=== PATIENT | female | born 1965 | race Caucasian/White ===

== ENCOUNTER 2022-12-07 14:35 | Outpatient (CLI) | payer BC, SELFPAY ==
--- NOTE | 2022-12-07 14:40 | CRLHL7_ITS ---
For Patients: As a result of the Century Cures Act, medical imaging exams and procedure reports are released immediately into your electronic medical record. You may view this report before your referring provider. If you have questions, please contact your health care provider. BILATERAL SCREENING MAMMOGRAM WITH COMPUTER-AIDED DETECTION AND TOMOSYNTHESIS TECHNIQUE: CC and MLO views were obtained. These mammographic images have been obtained using full-field digital technique. These mammographic images were interpreted with the benefit of computer-aided detection. Breast Tomosynthesis was used in this interpretation. COMPARISON FILM: 11/04/21, 10/31/20, 10/25/19 FINDINGS: There are scattered areas of fibroglandular density. IMPRESSION: There is no radiographic evidence for malignancy. ASSESSMENT: BI-RADS Category 1: Negative RECOMMENDATION: Routine screening mammogram in 1 year. A lay language report of this examination will be provided to the patient. Gerard Rodriges M.D. Diagnostic/Nuclear Medicine Radiologist [email or web address] Transcribed: 8:33 a.m. PT/Dictated by: Gerard Rodriges MD @ 12/08/2022 8:21:00 AM (Electronically Signed)
== END 2022-12-07 14:36 | disposition home or self-care (01) ==
LOC: MAMMO 14:36
PROVIDERS: Visit Provider Family Medicine
DX: Z12.31 Encounter for screening mammogram for malignant neoplasm of breast (principal)
CPT/HCPCS: 77063; 77067

== ENCOUNTER 2023-04-26 15:28 | Outpatient (CLI) | payer BC, SELFPAY ==
--- NOTE | 2023-04-26 15:30 | MR_ITS ---
[facility] [address] [facility] [address] Phone:?[phone] Fax:?[phone] Referring Physician Information: Demarcus Jane M.D. [address] [facility] [address] Phone:?[phone] Fax:?[phone] Patient:Jet lA D.O.B:?1965 Sex:?Female Phone:?[phone] [facility] MRN:?[id number] Exam Date:?04/26/2023 EXAM: MRI EXAMINATION OF THE LEFT SHOULDER CLINICAL INFORMATION: Left shoulder pain. No history of surgery to this area. Question possible tear. TECHNICAL INFORMATION: Coronal STIR as well as axial, sagittal and coronal PD and T2-weighted images were acquired. No prior studies for comparison. INTERPRETATION: Bones: There is no Hill-Sachs impaction deformity. There are mild osseous cystic changes alongside the AC joint. There is no other bone marrow edema pattern. Rotator Cuff: Series 8 images 5 and 6 as well as series 4 images 10 and 11 demonstrate a 1.1 cm AP by 1 cm mediolateral segment of fraying/poorly defined partial tearing involving bursal sided fibers of the mid to anterior supraspinatus tendon insertion. This appears to maximally involve one half of the tendon fiber thickness. The infraspinatus tendon is intact without tear or significant tendinopathy. The teres minor tendon is intact. There is a mild to moderate appearance of subscapularis tendinopathy. Localized fatty infiltration/fatty atrophy involves the superior one third of the distal muscle belly. Coracoacromial arch: There is no discrete subacromial osseous spur. The bony acromiohumeral interval is measuring 5 to 6 mm. There is no thickening identified of the coracoacromial ligament. Acromioclavicular joint: There is a marked appearance of AC joint DJD. Undersurface spurring and resultant moderate underlying supraspinatus deformity. Mild thickening and edema signal involves the subacromial/subdeltoid bursa areas. Biceps tendon: The long head biceps tendon is intact and nondisplaced from the bicipital groove. No evidence for a tendon tear or appreciable changes of tendinopathy. Glenohumeral joint and labrum: No significant glenohumeral joint effusion. No discrete loose body within the joint. Osteochondral surfaces appear relatively preserved. There is degeneration with blunting and irregularity involving the mid to posterior aspect of the superior labrum. Blunting and degeneration involves the superior posterior labrum. There is ossification within the posterior inferior labrum. No discrete paralabral cyst is identified. CONCLUSION: 1. There is a small to moderate-sized segment of fraying/poorly defined partial tearing involving bursal sided fibers of the mid to anterior supraspinatus tendon insertion. This appears to maximally involve one half of the tendon fiber thickness. 2. Mild to moderate subscapularis tendinopathy. Localized mild to moderate fatty atrophy/fatty infiltration involves the superior one third of the distal muscle belly. 3. 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 4. Mild to moderate narrowing of the acromiohumeral interval. Mild subacromial/subdeltoid bursitis. 5. No appreciable glenohumeral chondromalacia. Blunting and degeneration involves the superior and superior posterior labrum. There is ossification within the posterior inferior labrum which may be related to a chronic injury. KES Electronically signed on 04/27/2023 8:33:00 AM by Deric Fuller M.D.
== END 2023-04-26 15:29 | disposition home or self-care (01) ==
LOC: MRI 15:29
PROVIDERS: PCP Family Medicine; Visit Provider Family Medicine
DX: M25.512 Pain in left shoulder (principal); M75.102 Unspecified rotator cuff tear or rupture of left shoulder, not specified as traumatic; M19.012 Primary osteoarthritis, left shoulder; M75.52 Bursitis of left shoulder; M94.212 Chondromalacia, left shoulder
CPT/HCPCS: 73221

== ENCOUNTER 2023-12-14 12:31 | Outpatient (CLI) | payer OTHER, SELFPAY | END 2023-12-14 12:32 | disposition home or self-care (01) | PROVIDERS: PCP Family Medicine; Visit Provider Family Medicine | DX: I10 Essential (primary) hypertension (principal); M25.50 Pain in unspecified joint | CPT/HCPCS: 80048; 80061; 84460; 85025; 86039; 86140; 86431 ==

== ENCOUNTER 2024-01-18 07:56 | Outpatient (CLI) | payer OTHER, SELFPAY ==
--- NOTE | 2024-01-18 08:00 | CRLHL7_ITS ---
For Patients: As a result of the Century Cures Act, medical imaging exams and procedure reports are released immediately into your electronic medical record. You may view this report before your referring provider. If you have questions, please contact your health care provider. INDICATION: Lung cancer screening. History of smoking. High risk patient. TECHNIQUE: Low-dose lung cancer screening non-contrast CT chest. Dose reduction techniques were used. COMPARISON: None. FINDINGS: NODULES: 11 x 10 millimeter left upper lobe noncalcified nodule (series 4 image 34). LUNGS AND PLEURA: Minimal emphysema. MEDIASTINUM: Normal. CORONARY ARTERY CALCIFICATION: None. LIMITED UPPER ABDOMEN: Right kidney not visualized, possibly malpositioned surgically absent. MUSCULOSKELETAL: Mild thoracic spondylosis. IMPRESSION: 1. ACR Lung-RADS category 4A, suspicious. 11 x 10 millimeter left upper lobe solid nodule at baseline. 2. Recommend further assessment with PET-CT. Please note that all CT scans at this facility use dose modulation, iterative reconstruction, and/or weight-based dosing when appropriate to reduce radiation dose to as low as reasonably achievable. Dictated by Trenton Manzano MD @ 01/19/2024 6:22:18 AM (Electronically Signed)
== END 2024-01-18 07:57 | disposition home or self-care (01) ==
LOC: CT 07:56
PROVIDERS: PCP Family Medicine; Visit Provider Family Medicine
DX: Z12.2 Encounter for screening for malignant neoplasm of respiratory organs (principal); R91.8 Other nonspecific abnormal finding of lung field; Z72.0 Tobacco use
CPT/HCPCS: 71271

== ENCOUNTER 2024-02-03 15:17 | Outpatient (CLI) | payer OTHER, SELFPAY ==
--- NOTE | 2024-02-03 15:30 | PE_ITS ---
[facility] [address] [facility] [address] Phone:?[phone] Fax:?[phone] Referring Physician Information: Demarcus Jane M.D. [address] [facility] [address] Phone:?[phone] Fax:?[phone] Patient:?Sol Al D.O.B:?1965 Sex:?Female Phone:?[phone] [facility] MRN:?[id number] Exam Date:?02/03/2024 EXAM:?PET/CT EYES TO THIGHS, CANCER INITIAL STAGING CLINICAL INFORMATION: Evaluate lung nodule TECHNICAL INFORMATION: Helical acquisition of data was obtained from the orbits to the upper thighs with reconstruction of 3.75 mm thick images at 3.[address] data was used for attenuation correction. PET scanning was performed through the same anatomic range 60 minutes following administration of 11.85 mCi of 18-FDG delivered intravenously. The patient's glucose at the time of the injection was 85 mg/dL. PET, CT and PET/CT fusion images are interpreted using a computer viewing workstation. PET, CT and PET/CT fusion images were archived and saved in the patient's permanent medical record. COMPARISON: CT chest 01/18/2024 INTERPRETATION: Head and Neck: A few subcentimeter (measuring up to 6 mm in short axis) left cervical chain lymph nodes (levels IB and IIA) with mild radiotracer avidity (fused images 40, 43) with an SUV max of 7.29. There is physiologic uptake in the intracranial soft tissues. Chest: Mediastinal blood pool activity with an SUV max of 2.69. Redemonstrated 1.1 cm nodule in the left upper lobe (series 202 image 83) which does not demonstrate significant FDG avidity (SUV max of 1.33). No other lung nodules are detected. No lymphadenopathy detected. No pleural effusion or pneumothorax. A 1.5 cm hypoattenuating nodule in the left thyroid lobe without associated radiotracer avidity. Abdomen and Pelvis: Background liver parenchymal uptake with a mean SUV of 2.5. There are no abnormal hypermetabolic foci within the abdomen or pelvis. There is physiologic excretion of radiotracer in the urine and bowel. Hepatic steatosis. The right kidney is absent. A few sigmoid diverticula. Normal appendix. Aortoiliac atherosclerosis. A fat-containing left periumbilical hernia. Skeleton, Musculature, and Integument: No abnormal hypermetabolic foci within the skeleton. No kenroy osteoblastic or osteolytic disease. CONCLUSION: * A stable 1.1 cm nodule in the left upper lobe without associated radiotracer avidity. Recommend follow-up with CT chest in 6 months. * A few subcentimeter radiotracer avid left cervical chain lymph nodes. These are nonspecific and although they are small in size, the degree of uptake is suspicious. Cannot exclude a primary neck neoplasm. Recommend CT of the neck with IV contrast for further evaluation. * A 1.5 cm left thyroid lobe nodule without associated radiotracer avidity. Consider thyroid ultrasound for further evaluation. Electronically signed on 02/07/2024 9:59:00 AM by Fareed Valdez D.O
== END 2024-02-03 15:18 | disposition home or self-care (01) ==
LOC: RAD 15:18
PROVIDERS: PCP Family Medicine; Visit Provider Family Medicine
DX: R91.8 Other nonspecific abnormal finding of lung field (principal); E04.1 Nontoxic single thyroid nodule
CPT/HCPCS: 78815; A9552

== ENCOUNTER 2024-02-08 14:56 | Outpatient (CLI) | payer OTHER, SELFPAY ==
[2024-02-08] MEDS: PERFLUTREN LIPID MICROSPHERES 2 ML VIAL IV (15:25)
[2024-02-08 15:55] VITALS: BP 132/86; PULSE 82
--- NOTE | 2024-02-08 16:00 | CRLHL7_ITS ---
For Patients: As a result of the Century Cures Act, medical imaging exams and procedure reports are released immediately into your electronic medical record. You may view this report before your referring provider. If you have questions, please contact your health care provider. INDICATION: Localized enlarged lymph nodes TECHNIQUE: CT of the neck with 94 ml iodinated contrast agent. Coronal and sagittal reconstructions are included. COMPARISON: PET/CT 02/03/2020 FINDINGS: There is no mass or other lesion within the soft tissues of the suprahyoid or infrahyoid neck. No lymphadenopathy. A few lymph nodes that demonstrated hypermetabolism on the previous study are not enlarged by size criteria and have a normal morphology. The oral cavity, nasopharyngeal, oropharyngeal and hypopharyngeal mucosal spaces are normal. No periapical dental disease. The supraglottic, glottic and infraglottic larynx are normal. The airway including the trachea is normal and is patent. The parotid glands, submandibular and sublingual glands are normal in appearance. There is a 1.7 cm left thyroid nodule. The vascular structures opacify normally with contrast material. Scattered mild cervical spondylosis without significant neural foraminal stenosis. No suspicious lytic or blastic osseous lesions. Visualized paranasal sinuses and mastoid air cells are clear. Visualized orbital and intracranial contents are normal. Supraclavicular regions, mediastinum and soft tissues of the imaged chest wall are normal. Stable 1.2 cm soft tissue lesion in the left upper lobe. IMPRESSION: 1. No suspicious enhancement or neck mass. 2. No evidence of acute inflammation. 3. No cervical lymphadenopathy. 4. Stable 1.7 cm left thyroid nodule. 5. Stable 1.2 cm soft tissue lesion in the left upper lobe. Please note that all CT scans at this facility use dose modulation, iterative reconstruction, and/or weight-based dosing when appropriate to reduce radiation dose to as low as reasonably achievable. Dictated by Demarcus House MD @ 02/09/2024 1:34:29 PM (Electronically Signed)
[2024-02-08 16:27] LABS: Creatinine* 0.6 mg/dL (0.5-1.5); Est. Creatinine Clearance* 86.61; Estimated Glomerular Filt Rate 105 ml/min
--- NOTE | 2024-02-08 16:44 | P.STN_ITS ---
Stress Test Note Date Date of test: 02/08/24 Providers Primary care provider: Demarcus Jane Stress test physician: Tonio Salinas Stress Test Note Stress test ordered: Stress Echo Indication for test: Chest pain Results discussion: Patient is a very nice 58-year-old female who presents here for the above diagnosis after discussion the risks benefits and side effects she would like to proceed pretest EKG shows normal sinus rhythm with no acute ST wave changes, ventricular rate 67 blood pressure is 128/83. Standard Thomas protocol is fol lowed over a time course of 9 minutes 3 seconds, metabolic equivalent obtained is 10.5 maximum heart rate was 143, maximum blood pressure was 190/100. Test is terminated because of fulfillment of protocol. She had no anginal equivalent symptoms. Review of the EKG tracing showed no ST wave changes suggestive of ischemia, there were no dysrhythmias she recovered normally in the recovery. Impression: Negative electrographic portion of stress echo Follow up suggested: Patient did well, Cardiology will read the echo portion, clinical correlation with this will be needed, conditioning was felt to be good. Patient will be discharged from this testing facility when she fulfills criteria for discharge. There were no complication.
== END 2024-02-08 14:57 | disposition home or self-care (01) ==
LOC: STRESS 14:57
PROVIDERS: PCP Family Medicine; Visit Provider Family Medicine
DX: R07.9 Chest pain, unspecified (principal); R59.0 Localized enlarged lymph nodes
CPT/HCPCS: 36415; 70491; 82565; 93016; 93325; 93351; Q9957; Q9967

== ENCOUNTER 2024-02-28 15:14 | Outpatient (CLI) | payer OTHER, SELFPAY ==
--- NOTE | 2024-02-28 15:20 | CRLHL7_ITS ---
For Patients: As a result of the Century Cures Act, medical imaging exams and procedure reports are released immediately into your electronic medical record. You may view this report before your referring provider. If you have questions, please contact your health care provider. BILATERAL DIGITAL SCREENING MAMMOGRAM WITH COMPUTER-AIDED DETECTION AND TOMOSYNTHESIS CLINICAL HISTORY: Routine screening exam. COMPARISON: 12/07/2022, 11/04/2021, 10/31/2020. TECHNIQUE: Digital mammogram in CC and MLO projections including computer-aided detection (CAD). Tomosynthesis was used in this interpretation. BREAST COMPOSITION: There are areas of scattered fibroglandular density. FINDINGS: RIGHT Breast: Microcalcifications are present in the upper outer quadrant 8 cm from the nipple. LEFT Breast: No suspicious findings. IMPRESSION: RIGHT breast calcifications. RECOMMENDATIONS: Spot compression magnification views of the calcifications in the RIGHT breast in CC and ML projections. BI-RADS Category 0: Incomplete: Need additional Imaging Evaluation and/or Prior Mammograms for Comparison [facility] will contact the patient for follow-up. A lay language report of this examination will be provided to the patient. Dictated by Demarcus Reese MD @ 02/29/2024 8:44:14 AM jj/Dictated by: Demarcus Reese MD @ 02/29/2024 8:44:00 AM (Electronically Signed)
== END 2024-02-28 15:15 | disposition home or self-care (01) ==
LOC: MAMMO 15:16
PROVIDERS: PCP Family Medicine; Visit Provider Family Medicine
DX: Z12.31 Encounter for screening mammogram for malignant neoplasm of breast (principal); R92.0 Mammographic microcalcification found on diagnostic imaging of breast
CPT/HCPCS: 77063; 77067

== ENCOUNTER 2024-03-07 10:48 | Outpatient (CLI) | payer OTHER, SELFPAY ==
--- NOTE | 2024-03-07 10:45 | CRLHL7_ITS ---
For Patients: As a result of the Cures Act, medical imaging exams and procedure reports are released immediately into your electronic medical record. You may view this report before your referring provider. If you have questions, please contact your health care provider. DIGITAL DIAGNOSTIC RIGHT MAMMOGRAM USING COMPUTER-AIDED DETECTION CLINICAL HISTORY: RIGHT breast calcification. COMPARISON: 11/04/2021. TECHNIQUE: Digital RIGHT mammogram in three projections with computer-aided detection. BREAST COMPOSITION: There are areas of scattered fibroglandular density. FINDINGS: Additional mammogram images demonstrate loose grouping of non-layering microcalcifications within the upper outer quadrant RIGHT breast 7 cm from the nipple. IMPRESSION: Indeterminate microcalcifications. RECOMMENDATIONS: Stereotactic biopsy. Results and recommendations discussed with the patient. BI-RADS Category 4: Suspicious A lay language report of this examination will be provided to the patient. Dictated by Demarcus Reese MD @ 03/07/2024 12:15:32 PM janj/Dictated by: Demarcus Reese MD @ 03/07/2024 12:15:00 PM (Electronically Signed)
== END 2024-03-07 10:49 | disposition home or self-care (01) ==
LOC: MAMMO 10:49
PROVIDERS: PCP Family Medicine; Visit Provider Family Medicine
DX: R92.0 Mammographic microcalcification found on diagnostic imaging of breast (principal); R92.8 Other abnormal and inconclusive findings on diagnostic imaging of breast
CPT/HCPCS: 77065; G0279

== ENCOUNTER 2024-07-10 15:52 | Outpatient (CLI) | payer OTHER, SELFPAY ==
--- NOTE | 2024-07-10 16:00 | CRLHL7_ITS ---
For Patients: As a result of the Century Cures Act, medical imaging exams and procedure reports are released immediately into your electronic medical record. You may view this report before your referring provider. If you have questions, please contact your health care provider. Indication: ABNORMAL FINDINGS ON PET SCAN 02/03/24 Technique: Noncontrast CT chest Please note that all CT scans at this facility use dose modulation, iterative reconstruction, and/or weight-based dosing when appropriate to reduce radiation dose to as low as reasonably achievable. Comparison: CT PET 02/03/2024 Findings: Stable 12 millimeter nodule within the left upper lobe. No additional nodule. No fracture or suspicious osseous lesion. Mild paraseptal emphysema noted anteriorly. No pleural effusion or pulmonary edema. No pneumothorax. No adenopathy. Similar low-density left thyroid lobe nodule. Simple left renal cyst. Severely atrophied right [place] kidney. Impression: Stable 12 millimeter noncalcified left upper lobe pulmonary nodule. Please note that all CT scans at this facility use dose modulation, iterative reconstruction, and/or weight-based dosing when appropriate to reduce radiation dose to as low as reasonably achievable. Dictated by Demarcus Reese MD @ 07/11/2024 12:35:27 PM (Electronically Signed)
== END 2024-07-10 15:53 | disposition home or self-care (01) ==
LOC: CT 15:52
PROVIDERS: PCP Family Medicine; Visit Provider Family Medicine
DX: R91.8 Other nonspecific abnormal finding of lung field (principal); Z72.0 Tobacco use
CPT/HCPCS: 71250

== ENCOUNTER 2024-08-29 15:27 | Outpatient (CLI) | payer OTHER, SELFPAY ==
--- NOTE | 2024-08-29 15:30 | CRLHL7_ITS ---
For Patients: As a result of the 21st Century Cures Act, medical imaging exams and procedure reports are released immediately into your electronic medical record. You may view this report before your referring provider. If you have questions, please contact your health care provider. CLINICAL INDICATION: Right shoulder pain. COMPARISON IMAGING STUDIES: None available at time of interpretation. TECHNICAL: Non-contrast MRI of the right shoulder. Axial, sagittal oblique and coronal oblique T1, PD, PD FS, T2 and T2 FS images. 1.5 Alycia MR scanner. FINDINGS: GLENOHUMERAL JOINT: Effusion: Small amount of joint fluid. Mild synovitis. Humeral Head Articular Cartilage: Mild humeral head articular cartilage wear (grade 1/2). Glenoid Articular Cartilage: Mild glenoid cartilage wear (grade 1/2). Alignment: Maintained. Capsule: There is some edema within the rotator interval without not involving the glenohumeral joint capsule diffusely. OSSEOUS STRUCTURES: Periarticular bone marrow edema about the AC joint. There is no acute fracture. Reactive bone marrow edema is present within the lesser tuberosity. CORACOACROMIAL ARCH: Acromial Morphology: Type 2 acromial morphology. No abnormal lateral or anterior downward sloping of the acromion. No os acromiale. There is spurring of the anterior lateral acromion. Lateral acromial thickness is 7 mm. Acromiohumeral Interval: At its narrowest, the interval measures 8 mm. Mildly prominent coracoacromial ligament. Coracohumeral Interval: At its narrowest, the coracohumeral interval measures 9 mm. Coracoid index is 10 mm. ACROMIOCLAVICULAR JOINT REGION: Severe/advanced AC joint degenerative arthrosis with periarticular bone marrow edema and AC joint capsular edema. Coracoclavicular ligament intact. BURSAE: Mild subacromial-subdeltoid bursal edema. Mild subcoracoid bursal edema. ROTATOR CUFF TENDONS AND MUSCLES AND DELTOID: Supraspinatus and Infraspinatus: Moderate supraspinatus tendinosis with undersurface irregularity of the distal tendon suggesting sequelae of [id number]-qs-espyprst grade partial-thickness tendon tearing or fraying. There is some low signal associated with the distal tendon on coronal oblique PD fat-sat image number 12 series 7 which may relate to calcific tendinitis. Radiographic correlation is suggested. There is no full-thickness tear or muscle atrophy. Mild distal infraspinatus tendinosis. The distal infraspinatus tendon tear or muscle atrophy. Teres Minor: Distal tendon intact. No muscle atrophy. Subscapularis: Distal subscapularis tendon is severely abnormal over a 1.5 cm craniocaudad extent with high-grade partial to full-thickness tearing of the tendon from the lesser tuberosity. No subscapularis muscle atrophy. Deltoid: No muscle atrophy or edema. BICEPS TENDON, LONG HEAD: There is tendinosis of the long head of the biceps tendon likely with tendon fraying. Large amount of fluid within the biceps tendon sheath. Slight medial subluxation of the tendon at the upper margin of the bicipital groove without dislocation. GLENOID LABRUM: Degenerative fraying of the superior labrum. OTHER FINDINGS: There is no abnormality within the suprascapular or spinoglenoid notches nor within the quadrilateral space. No axillary adenopathy or mass. IMPRESSION: 1. Severely abnormal distal subscapularis tendon with high-grade partial to full-thickness tearing of the tendon from the lesser tuberosity superiorly. Reactive bone marrow edema within the lesser tuberosity. 2. Moderate supraspinatus tendinosis with undersurface irregularity of the distal tendon suggesting sequelae of khf-qe-aqkihkrg grade partial-thickness tendon tearing or fraying. Low signal associated with the distal tendon may relate to calcific tendinitis. Radiographic correlation is suggested. 3. Advanced AC joint degenerative arthrosis with periarticular bone marrow edema and AC joint capsular edema. 4. Tendinosis of the long of the biceps tendon with fraying. Subtle/slight medial subluxation of the tendon at the upper-most bicipital groove, without dislocation. 5. Mild glenohumeral joint degenerative changes. 6. Mild subacromial-subdeltoid and subcoracoid bursal edema. Dictated by Nikhil Cao MD @ 08/30/2024 8:18:14 AM (Electronically Signed)
== END 2024-08-29 15:28 | disposition home or self-care (01) ==
LOC: MRI 15:29
PROVIDERS: PCP Family Medicine; Visit Provider Family Medicine
DX: M25.511 Pain in right shoulder (principal); M75.101 Unspecified rotator cuff tear or rupture of right shoulder, not specified as traumatic; M75.51 Bursitis of right shoulder; M19.011 Primary osteoarthritis, right shoulder
CPT/HCPCS: 73221

== ENCOUNTER 2024-11-06 15:52 | Outpatient (CLI) | payer OTHER, SELFPAY | END 2024-11-06 15:53 | disposition home or self-care (01) | LOC: FBOREF 15:53 | PROVIDERS: PCP Family Medicine; Visit Provider Family Medicine | DX: I10 Essential (primary) hypertension (principal) | CPT/HCPCS: 80048; 85025 ==

== ENCOUNTER 2025-03-19 15:16 | Outpatient (CLI) | payer OTHER, SELFPAY ==
--- NOTE | 2025-03-19 15:20 | CRLHL7_ITS ---
For Patients: As a result of the Century Cures Act, medical imaging exams and procedure reports are released immediately into your electronic medical record. You may view this report before your referring provider. If you have questions, please contact your health care provider. INDICATION: BILATERAL SCREENING MAMMOGRAM, ASYMPTOMATIC 59 Y/O FEMALE COMPARISON: 02/28/2024, 12/07/2022, 11/04/2021 TECHNIQUE: Digital mammogram in CC and MLO projections including computer-aided detection (CAD) and tomosynthesis. BREAST COMPOSITION: There are scattered areas of fibroglandular density. FINDINGS: No suspicious findings. ASSESSMENT: BI-RADS 1 Negative RECOMMENDATION: Annual screening mammogram. A lay language report of this examination will be provided to the patient. Dictated by: Demarcus Reese MD @ 03/20/2025 12:54:57 (Electronically Signed)
== END 2025-03-19 15:17 | disposition home or self-care (01) ==
LOC: MAMMO 15:16
PROVIDERS: PCP Family Medicine; Visit Provider Family Medicine
DX: Z12.31 Encounter for screening mammogram for malignant neoplasm of breast (principal)
CPT/HCPCS: 77063; 77067

== ENCOUNTER 2025-06-03 14:39 | Emergency (ER) | payer OTHER, SELFPAY ==
--- OUTSIDE RECORDS SUMMARY | 2025-05-20 23:42 | XMS_ITS | Encounter Summary ---
Author Organization [facility] Address [address] [place] [address] Care Team Providers Care White Washer Name Role Phone Unavailable Primary Care Provider Unavailabl e Reason for Visit * Reason Comments Finger Laceration Encounter Details Date Type Department Care Team ([facility] Contact Info) Description 05/20/2025 11:42 PM CDT - 05/21/2025 12:19 AM CDT Emergency [facility] Emergency [address] [place] [phone] Tony Govea MD [address] [place] [address] Discharge Disposition: Home or Self Care Social History Tobacco Use Types Packs/Day Years Used Date Smoking Tobacco: Never Assessed Comments Unknown Sex and Gender Information Value Date Recorded Sex Assigned at Not on file Legal Sex Female 1:10 PM PDT Gender Identity Not on file Sexual Orientation Not on file documented as of this encounter Last Filed Vital Signs Vital Sign Reading Time Taken Comments Blood Pressure 126/79 05/20/2025 11:46 PM CDT Pulse 69 05/20/2025 11:46 PM CDT Temperature 36.4 C (97.5 F) 05/20/2025 11:46 PM CDT Respiratory Rate 16 05/20/2025 11:46 PM CDT Oxygen Saturation 96% 05/20/2025 11:46 PM CDT Inhaled Oxygen Concentration - - Weight 81.6 kg (180 lb) 05/20/2025 11:46 PM CDT Height 162.6 cm (5' 4) 05/20/2025 11:46 PM CDT Body Mass Index 30.9 05/20/2025 11:46 PM CDT documented in this encounter Discharge Instructions * Discharge Instructions* Tony Govea MD - 05/21/2025 12:02 AM CDT Keep area mostly dry. Avoid soaking your hand. Watch for signs or symptoms of infection. Sutures can be removed in 1 week documented in this encounter ED Notes * Tony Govea MD - 05/21/2025 12:02 AM CDT HPI Chief Complaint Patient presents with Finger Laceration 59-year-old female presents with a laceration on the back of her left thumb. She had a metal piece of hard work fall off the wall and cut her hand. She is due for a tetanus shot Current Facility-Administered Medications Medication Dose Route Frequency Provider Last Rate Last Admin diphth,pertus(acell),tetanus (BoostRIX) 2.5-8-5 Lf-mcg-Lf/0.5mL vaccine 0.5 mL 0.5 mL intramuscularOnce Tony Govea MD lidocaine (Xylocaine) 10 mg/mL (1 %) injection - ADS Override Pull No current outpatient medications on file. Patient History There are no active problems to display for this patient. No past medical history on file. No past surgical history on file. No family history on file. Social History Tobacco Use Smoking status: Not on file Smokeless tobacco: Not on file Substance Use Topics Alcohol use: Not on file Drug use: Not on file Review of Systems Review of Systems Physical Exam Vitals: 05/20/25 2346 BP: 126/79 Pulse: 69 Resp: 16 Temp: 97.5 ??F (36.4 ??C) TempSrc: Temporal SpO2: 96% Weight: 180 lb (81.6 kg) Height: 5' 4 (1.626 m) Physical Exam Skin: Findings: Laceration present. Comments: 1.5 cm laceration on the back of her left thumb LABS: No results found for this or any previous visit (from the past 24 hours). IMAGING: No results found. Procedures Medical Decision Making 59-year-old presents with a laceration of her left thumb. Differential includes nerve injury vascular injury tendon injury. Exam showed no loss of function or sensation. She did have a laceration however that required sutures. After anesthesia was obtained with 1% lidocaine directly into the lesionI sewed it shot with 5-0 sutures #4 in a simple interrupted fashion. Wound was closed tightly without any problems. Patient can have sutures removed in 1 week. Band- Aid was placed Problems Addressed: Laceration of left thumb without foreign body without damage to nail, initial encounter: complicated acute illness or injury Amount and/or Complexity of Data Reviewed External Data Reviewed: notes. Risk Prescription drug management. Final diagnoses: [S61.012A] Laceration of left thumb without foreign body without damage to nail, initial encounter * Elza Khan RN - 05/20/2025 11:48 PM CDT ED Nursing Triage Note Patient presents to triage Private Car. Significant symptoms per patient include left thumb laceration when a aisha star ornament fell off the wall onto her thumb, stating it bled a lot. She washed it out under tap water at home. Happened about 2100 tonight. Currently it is not bleeding and is overthe first joint of the left thumb. Pre hospital prior living situation: Home ED Arrival Note Chief Complaint: Chief Complaint Patient presents with Finger Laceration History of Trauma/Loss of Consciousness: No Initial Set of Vital Signs: BP 126/79 Pulse 69 Temp 97.5 ??F (36.4 ??C) Resp 16 Ht 5' 4 (1.626 m) Wt 180 lb (81.6 kg) SpO2 96% BMI 30.90 kg/m?? BSA 1.92 m?? Elza Khan RN .................... 05/20/2025 11:48 PM CDT documented in this encounter Miscellaneous Notes * Leticia DESOUZA - Gerard Steel RN - 05/21/2025 12:14 AM CDT Images from the original note were not included. [id number] Laceration, All Closures A laceration is a cut through the skin. This will usually need stitches or humza if it's deep. Minor cuts may be treated with a surgical tape closure or skin glue. Home care ? If your doctor prescribes an antibiotic, follow all instructions for taking this medicine. This is to help prevent infection. Take the medicine every day until it's gone, or you are told to stop. You should not have any left over. ? Follow instructions for taking any pain medicines. The doctor may prescribe medicines for pain. If none was prescribed, you can use topa-pba-qfzpoka pain medicines. Talk with your doctor before using these medicines if you have chronic liver or kidney disease, ever had a stomach ulcer or digestive bleeding, or are on a blood thinner medicine. ? Follow the doctor?s instructions on how to care for the cut. ? Always wash your hands before and after cleaning the wound or changing the dressing. ? Keep the wound clean and dry. Don't get the wound wet until you are told it's okay to do so. If the area gets wet, gently pat it dry with a clean cloth. Replace the wet bandage with a dry one. ? If a bandage was applied and it becomes wet or dirty, replace it. Otherwise, leave it in place for the first 24 hours. ? Caring for stitches or humza: Once you no longer need to keep them dry, clean the wound daily. First remove the bandage. Then wash the area gently with soap and clean running water, or as directed by the doctor. Use a wet cotton swab to loosen and remove any blood or crust that forms. After cleaning, apply a thin layer of antibiotic ointment if advised. Then put on a new bandage unless you are told not to. ? Caring for skin glue: Don?t apply liquid, ointment, or cream on the wound while the glue is in place. It will loosen the glue. Don't do activities that cause heavy sweating. Protect the wound from sunlight. Don't scratch, rub, or pick at the adhesive film. Don't place tape directly over the film.The glue should peel off on its own in 5 to 10 days. If it does not fall off after 5 to 10 days, use an antibiotic ointment or petroleum jelly to loosen it, then gently peel it off. ? Caring for surgical tape: Keep the area dry. If it gets wet, blot it dry with a clean towel. Surgical tape often falls off in 7 to 10 days. If it has not fallen off after 10 days, you can take it off yourself. Put mineral oil or petroleum jelly on a cotton ball and gently rub the tape until it's removed. ? Once you can get the wound wet, you may shower as normal. Don't soak the wound in water (no tub baths or swimming). ? Check the wound daily for the signs of infection listed below. Even with correct treatment, a wound infection may sometimes occur. Scalp wounds Follow your doctor's specific instructions on showering. During the first 2 days, you may carefullyrinse your hair in the shower to remove blood, glass, or dirt particles. After 2 days, you may shower and shampoo your hair normally. Don't soak your scalp in the tub or go swimming until the stitches or humza have been removed. Talk with your doctor before applying any antibiotic ointment to thewound. Avoid scratching or picking on the wound scab. It will delay healing. Avoid using hair products like dyes, hair spray, or extensions while a scalp wound heals. Mouth wounds Eat soft foods to reduce pain. Avoid hot and spicy foods. If the cut is inside your mouth, clean itby rinsing after each meal and at bedtime with a mixture of equal parts water and hydrogen peroxide. (Don't swallow it.) Or you can use a cotton swab to apply hydrogen peroxide onto the cut. You may also be prescribed a chlorhexidine solution to rinse with. [place] and floss your teeth gently. Mouth wounds can be painful when eating. You may use an tabq-zid-mazxeww local numbing solution for pain relief. If this isn't available, you may use any numbing solution intended for teething babies. You may apply this directly to the sores with a cotton-tip swabor with your clean finger. Always wash your hands before and after cleaning the wound. Follow-up care Follow up with your doctor as advised. Ask your doctor how long stitches should be left in place. Be sure to return for stitch removal as directed. If dissolving stitches were used in the mouth, these should fall out or dissolve on their own. If tape closures were used, remove them yourself when your doctor advises if they haven't fallen off on their own. If skin glue was used, the film will wearoff by itself. Try to keep healing wounds out of direct sunlight for the first couple of months to try to lessen scarring. When to get medical advice Contact your doctor right away if you have: ? Signs of infection, including increasing pain in the wound, increasing wound redness or swelling,or pus or bad odor coming from the wound. ? A fever of 100.4??F (38.??C) or higher, or as advised by your doctor. ? Chills. ? Stitches or humza that come apart or fall out, or surgical tape that falls off before 7 days and the wound appears to be reopening. ? Wound edges that reopen. ? Wound color changes. ? Numbness around the wound after any numbing medicine should have worn off. ? Decreased movement or stiffness around the injured area. Call 911 Call 911 if you can't control the wound bleeding with direct pressure. Last Reviewed Date: 2024 00:00:00 ?? [id number] [employer]. All rights reserved. This information is not intended as a substitute for professional medical care. Always follow your healthcare professional's instructions. documented in this encounter Plan of Treatment Not on file documented as of this encounter Visit Diagnoses Diagnosis Laceration of left thumb without foreign body without damage to nail, initial encounter- Primary documented in this encounter Administered Medications Inactive Administered Medications - up to 3 most recent administrations Medication Order MAR Action Action Date Dose Rate Site lidocaine (Xylocaine) 10 mg/mL (1 %) injection - ADS Override Pull Starting on 05/20/25 at 2343, For 1 dose, Gerard Setel: cabinet override [place] 05/20/2025 11:45 PM CDT documented in this encounter Active and Recently Administered Medications Times are shown in CDT. No Frequency Medication Order 05/19/2025 05/20/2025 05/21/2025 lidocaine (Xylocaine) 10 mg/mL (1 %) injection - ADS Override Pull (COMPLETED) Starting on 05/20/25 at 2343, For 1 dose, Gerard Steel: cabinet override 2342 ([place] - Provider: Gerard Steel RN) documented in this encounter
[2025-06-03] VITALS (17 sets, daily range): BP systolic 117–141; BP diastolic 76–91; PULSE 64–79; RESP 13–21; TEMP 36.5; O2SAT 93–96; BMI 31.9
--- OUTSIDE RECORDS SUMMARY | 2025-06-03 14:41 | XMS_ITS ---
Author Name Interface, [id number] lity Address [address], [place] [address] [facility] Address [address] [address] Allergies and Adverse Reactions Medication/Group Name Reaction Severity Date No known allergies Plan Date Type Value 07/15/2021 APPOINTMENT RC - 605 NO LABS - 605 NO LABS 07/14/2021 APPOINTMENT RC - 605 RECHECK - 605 RECHECK 07/04/2021 APPOINTMENT PSTOP - 605 POST OP - 605 POST OP 07/01/2021 APPOINTMENT PSTOP - - 06/17/2021 APPOINTMENT EXLAP - - 06/17/2021 APPOINTMENT EXLAP - - 05/19/2021 APPOINTMENT MANDREL MAKER - MANDREL MAKER 605 OVAR EVE HUNT MD 05/19/2021 APPOINTMENT MANDREL MAKER - MANDREL MAKER 605 OVAR EVE HUNT MD 05/19/2021 LAB_ORDER ThinPrep PAP Scr eening, Imaged 05/19/2021 LAB_ORDER CEA panel 05/19/2021 LAB_ORDER CA 125 panel 05/19/2021 LAB_ORDER CA 19-9 panel Reason for Visit RC - 605 NO LABS - 605 NO LABS Encounters Date Name 05/19/2021 Cancer cervix screen ing status (finding) 05/19/2021 Fallopian tube findi ng (finding) 05/19/2021 Pelvic mass 05/19/2021 Postoperative wound infection (disorder) 05/19/2021 Tobacco use Immunizations Date Name Route Dose Instructions Refusal Reason Stat us Covid-19 vaccine (Pfizer) Completed Flu vaccine - Adult Not given other reason Not Administered Diagnostic Results Date Type Test Units Lower Limit Upper Limit Result Flag Comments Status Ordered By Specimen Source Lab Address 05/19 TYPE 16 Negativ e FINAL Mag cheema 05/19 TYPE 18 Negativ e FINAL Mag Pittman ast 05/19 OTHER HIGH RISK TYPES Negativ e HPV types 16, 18, 31, 33, 35, 39, 45, 51, 52, 56, 58, 59, 66 and 68 DNA wereundet ectable or below the pre-set threshold .Methodol ogy: Tony Tigist 4800 HPV TestTest Performed by:[facility], [address] - [place], [place] [address]Bqni e : FINAL Mag Pittman ast 05/19 Pap smear , liqui d based SEE RESULTS BELOW CASE REPORTGyn ecologic Cytology Report Case: [id number] 2Authoriz ing Provider: Mag Miller, Collected :05/19/20 21 1503MDOrd ering Location: [facility] Received: 1 1715First Screen: Saúl Quezada reen: Trevor Stephen cimen: CLIENT RELATIONSHIP CONSULTANT ThinPrep Vial Screening , CervicalI NTERPRETA TION/RESU LTNEGATIV E FOR INTRAEPIT HELIAL LESION OR MALIGNANC Y (NIL)Elec tronicall y signed by Shantelle Stephen on 1 at 2:26 PMORGANIS M(S)Shift in mee suggestiv e of bacterial vaginosis SPECIMEN ADEQUACYS atisfacto ry for evaluatio nEndocerv ical component presentHP V REQUESTHP V and PAPLAST PAP RESULTFir st Pap/Unkno wnABN PAP OR COLP BX IN LAST 5 YRSNoMENS TRUAL STATUSAbl ationCOLP BX DONE TODAYNoAD DITIONAL INFORMATI ONInterpr eted at [facility], [facility] - [address], [place], [place] [address]UQRO MATED REVIEWSuc cessfulSp ecimen processed successfu lly by automated assistant football coach device, ThinPrep ImagingSy stem, [employer]ANCIL JUAN JOSE TESTING GYNHPV Ordered, Please see separate reportNOT EThe pap test is a screening technique , not a diagnosti c procedure . It is usedprima rily to screen for squamous cancers and precursor lesions. Published studies have shown that it is subject to both false negative and false positiver esults. The pap test should not be used as the sole means to diagnose orexclude pre-malig nant and malignant lesions.T est Performed by:[facility] - [place], [place] [address]Wclp e : FINAL Mag Pittman ast 05/19 CA 125 panel CA 125 UNITS/ ML 0.0 34.0 17.10 Test performed at [facility] on a [employer] 2000 Immunoass ay Analyzer that uses an immunoenz ymometric sandwich assay for analysis. Patient testing should not be performed using multiple methodolo gies due to analytica l variation seen between test methodolo gies. FINAL Mag cheema [facility] a [facility]cology [place] [address] [place] [phone] Phone: () - 05/19 CEA panel CEA NG/ML 0.0 3.0 3.60 High Test performed at [facility] on a [employer] Immunoass ay Analyzer that uses an immunoenz ymometric sandwich assay for analysis. Patient testing should not be performed using multiple methodolo gies due to analytica l variation seen between test methodolo gies. FINAL Mag Beebe a [place] [address] [phone] Phone: () - 05/19 CA 19-9 panel CA 19-9 U/ML 0.0 35.0 8.8 Test performed at [facility] on a [employer] Immunoass ay Analyzer thatuses an immunoenz ymometric sandwich assay for analysis. Patient testing shouldnot be performed using multiple methodolo gies due to analytica l variation seenbetwe en test methodolo gies.Grace ents must possess the ability to express the Zafar blood group antigen.P atients unable to express the Zafar blood group antigen will be unable toproduce the CA19-9 antigen even in the presence of proven malignanc y. FINAL Mag Pittman ast 06/18 [facility] other lab See baling machine tender d Medications Date Name Route Dose Frequency Instructions Start Date End Date Status Fill Status Indication 05/19 Losartan-H ydrochloro thiazide Oral 100 mg-12.5 mg active 05/19 escitalopr am Oral Tablet active 05/19 Aspirin Oral active Problems Diagnosis Status Date of Diagnosis Resolution Date Postoperative wound infection (disorder) Active Fallopian tube finding (finding) Active Cancer cervix screening status (finding) Active Pelvic mass Active Tobacco use Active Vital Signs Date Type Value 05/19/2021 Height 64.00 05/19/2021 BMI 33.81 05/19/2021 BSA 1.94 05/19/2021 Intravascular Systolic 120 05/19/2021 Intravascular Diastolic 64 05/19/2021 Body Temperature 98.70 05/19/2021 Oxygen Saturation 96.00 05/19/2021 Respiratory Rate 14.00 05/19/2021 Heart Beat 61.00 05/19/2021 Weight 197.00 05/19/2021 Pain Scale 0.00 07/04/2021 Oxygen Saturation 97.00 07/04/2021 Heart Beat 82.00 07/04/2021 BSA 1.93 07/04/2021 Body Temperature 98.60 07/04/2021 Respiratory Rate 14.00 07/04/2021 Intravascular Systolic 118 07/04/2021 Intravascular Diastolic 62 07/04/2021 BMI 33.30 07/04/2021 Height 64.00 07/04/2021 Weight 194.00 07/04/2021 Pain Scale 0.00 07/14/2021 Body Temperature 99.10 07/14/2021 BSA 1.93 07/14/2021 BMI 33.30 07/14/2021 Height 64.00 07/14/2021 Oxygen Saturation 95.00 07/14/2021 Intravascular Systolic 118 07/14/2021 Intravascular Diastolic 70 07/14/2021 Respiratory Rate 14.00 07/14/2021 Pain Scale 0.00 07/14/2021 Weight 194.00 07/14/2021 Heart Beat 79.00
--- OUTSIDE RECORDS SUMMARY | 2025-06-03 14:41 | XMS_ITS ---
Author Name Interface, [id number] lity Address [address] [place] [address] Organization [facility] Address [address] [place] [address] Allergies and Adverse Reactions Medication/Group Name Reaction Severity Date No known allergies Plan Date Type Value 07/15/2021 APPOINTMENT RC - 605 NO LABS - 605 NO LABS 07/14/2021 APPOINTMENT RC - 605 RECHECK - 605 RECHECK Reason for Visit RC - 605 NO LABS - 605 NO LABS Encounters Date Name 07/14/2021 Fallopian tube findi ng (finding) 07/14/2021 Pelvic mass 07/14/2021 Postoperative wound infection (disorder) Medications Date Name Route Dose Frequency Instructions [...] use Active Vital Signs Date Type Value 07/14/2021 Body Temperature 99.10 07/14/2021 Intravascular Systolic 118 07/14/2021 Intravascular Diastolic 70 07/14/2021 Respiratory Rate 14.00 07/14/2021 Pain Scale 0.00 07/14/2021 Oxygen Saturation 95.00 07/14/2021 Height 64.00 07/14/2021 BMI 33.30 07/14/2021 BSA 1.93 07/14/2021 Heart Beat 79.00 07/14/2021 Weight 194.00
--- OUTSIDE RECORDS SUMMARY | 2025-06-03 14:41 | XMS_ITS | CCD ---
Author Name Interface, S3Sbdudhi lity Address [address] [place] [id number] Organization [facility] Address [address] [facility] [address] [place] [address] Care Team Providers Care Jacquard Fixer Name Role Phone Mag Stark MD Allergies and Adverse Reactions Medication/Group Name Reaction Severity Date No known allergies Reason for Visit RC - 605 NO LABS - 605 NO LABS Medications Date Name Route Dose Frequency Instructions Start Date End Date Status Fill Status Indication 05/19 escitalopr am Oral Tablet active 05/19 Aspirin Oral active 05/19 Losartan-H ydrochloro thiazide Oral 100 mg-12.5 mg active Problems Diagnosis Status Date of Diagnosis Resolution Date Postoperative wound infection (disorder) Active Fallopian tube finding (finding) Active Cancer cervix screening status (finding) Active Pelvic mass Active Tobacco use Active Social History Date Name Value 05/16/2021 Sex Female
--- OUTSIDE RECORDS SUMMARY | 2025-06-03 14:41 | XMS_ITS | Encounter Summary ---
Author Organization [facility] Address [address] [place] [address] Care Team Providers Care Spool Hauler Name Role Phone Unavailable Primary Care Provider Unavailabl e Encounter Details Date Type Department Care Team (Latest Contact Info) Description 05/20/2025 Travel Social History Tobacco Use Types Packs/Day Years Used Date Smoking Tobacco: Never Assessed Comments Unknown Sex and Gender Information Value Date Recorded Sex Assigned at Not on file Legal Sex Female 1:10 PM PDT Gender Identity Not on file Sexual Orientation Not on file documented as of this encounter Plan of Treatment Not on file documented as of this encounter Visit Diagnoses Not on filedocumented in this encounter
--- OUTSIDE RECORDS SUMMARY | 2025-06-03 14:42 | XMS_ITS | Clinical Summary ---
Author Organization [facility] Address [address] [place] [address] Care Team Providers Care Load Out Worker Name Role Phone Unavailable Primary Care Provider Unavailabl e Source Comments PLEASE NOTE, if this patient is a minor, it may be UNLAWFUL to discuss sensitive information that is contained in these records (such as FAMILY PLANNING, MENTAL HEALTH or SUBSTANCE ABUSE) with the minor patient's parent or other person without the patient's specific authorization.[facility] Allergies No known active allergies Medications No known medications Encounters Date Type Department Care Team Description 05/20/2025 11:42 PM CDT - 05/21/2025 12:[address] [facility] Emergency [address] [place] [phone] Tony Govea MD Discharge Disposition: Home or Self Care 05/20/2025 Travel 04/03/2025 3:30 PM CDT - 04/03/2025 11:59 PM CDT Hospital Encounter [facility] [place] [address] [place] [phone] Andres Darling, PT Discharge Disposition: Still a Patient 04/03/2025 Travel 03/07/[address] [facility] [address] [place] [address] Andres Darling, PT from Last 3 Months Immunizations Immunization Administration Dates Next Due TDAP 05/21/2025 Social History Tobacco Use Types Packs/Day Years Used Date Smoking Tobacco: Never Assessed Comments Unknown Sex and Gender Information Value Date Recorded Sex Assigned at Not on file Legal Sex Female 1:10 PM PDT Gender Identity Not on file Sexual Orientation Not on file Last Filed Vital Signs Vital Sign Reading [...] Mass Index 30.9 05/20/2025 11:46 PM CDT Plan of Treatment Health Maintenance Due Date Last Done Comments Anxiety Screening 1967 HPV Screening 1967 Hepatitis C Screening 1967 Pap + HPV 1967 Tobacco Screening 1967 HIV Screening 1982 Imm-Hepatitis B (1 of 3 - 19 + 3-dose series) 1986 Cervical Cancer Screening [address] Colonography 2012 Colonoscopy 2012 Flexible Sigmoidoscopy 2012 Breast Cancer Screening (Mammogram) 10/12/2019 10/12/2018 Lipid Screening 10/17/2019 10/16/2016 FIT/gFOBT 01/05/2024 01/04/2023, 01/04/2023 Diabetes Screening 06/18/2024 06/18/2021, 06/03/2018 Alcohol and Drug Screen 08/16/2024 Depression Annual Screen 08/16/2024 [id number] ( season) 2025 09/12/2021, 11/23/2020, 11/02/2020 Colorectal Cancer Screening 01/04/2026 Fecal DNA 01/04/2026 01/04/2023, 12/15, 02/23/2019 Hypertension Screening (#1) 05/20/2026 Imm-DTaP/Tdap/Td (3 - Td or Tdap) 05/21/2035 05/21/2025, 07/13/2014, 12/02/2004 Imm-Zoster, Recombinant Completed 05/05/2021, 02/24 Imm-Pneumococcal 50+ Completed 12/14/2023, 05/24/20 Imm-Influenza Completed 04/30/2025, 11/2023, 06/22/2022, Additional history exists Cervical Ablation/Cold-Knife Conization Discontinued Cervical Cryotherapy Discontinued Colposcopy Discontinued Endometrial Biopsy Discontinued Excision/Leep Discontinued HPV Genotyping Discontinued Vaginal Pap Discontinued Vulvoscopy Discontinued Insurance [facility]
--- OUTSIDE RECORDS SUMMARY | 2025-06-03 14:42 | XMS_ITS | Clinical Summary ---
Author Organization [employer] [facility] Address [address] [place] [id number] Care Team Providers Care Care Transition Mgr Name Role Phone Demarcus Jane MD Primary Care Provider + Allergies Active Allergy Reactions Criticality Noted Date Comments Anand Inhibitors Cough 12/11/2014 Medications MULTIVITAMIN TAB take 1 tablet by oral route once daily with food 0 09/13/19 08 Active aspirin enteric coated 81 mg tablet Take 1 tablet by mouth once daily with a meal. 0 02/19/20 11 Active rizatriptan (MAXALT LUSTER APPLICATOR) 10 mg disintegrating tabletIndications: Nonintractable migraine, unspecified migraine type Place 1 tablet on the tongue every 2 hours if needed for Migraine. Max dose: 30mg per 24 hrs. 6 tablet 12 10/27/19 18 Active losartan-hydrochlo rothiazide, 50-12.5 mg, (HYZAAR) 50-12.5 mg tabletIndications: Hypertension Take 1 tablet by mouth once daily. 90 tablet 3 10/27/19 18 Active escitalopram oxalate (LEXAPRO) 10 mg tabletIndications: Generalized anxiety disorder Take 1 tablet by mouth once daily. 90 tablet 3 10/27/19 18 Active oxyCODONE (ROXICODONE) 5 mg immediate release tabletIndications: Pelvic mass Take 1-2 Tablets (5-10 mg) by mouth every 4 hours if needed for Pain. 15 Tablet 1 11:33 AM CDT 06/19/20 21 Active acetaminophen (TYLENOL EXTRA STRGTH) 500 mg tablet Take 2 Tablets (1,000 mg) by mouth every 6 hours if needed. Max acetaminophen dose: 4000mg in 24 hrs. 06/19/20 21 Active nicotine 21 mg/24 hr (NICODERM; HABITROL) 21 mg/24 hr patchIndications:T obacco abuse Apply 1 Patch on dry, clean, hairless skin once daily. 42 Patch 06/20/20 21 Active sennosides-docusat e (SENOKOT S) (8.6-50 mg) tabletIndications: Pelvic mass Take 1-2 Tablets by mouth 2 times daily if needed for Constipation. 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 Anxiety state, unspecified 10/15/2007 Resolved Problems Problem Noted Date Diagnosed Date Resolved Date Cough 09/17/2013 06/23/2014 Immunizations Immunization Administration Dates Next Due AMB Influenza, IIV3 (Age >=3 years)(Flu Clinic Only) 06/23/2008 Influenza, IIV3 (Age >=3 years) 06/06/20 13,05/24/2012,06/04/2010,2006 Influenza, IIV4 06/03/2018, 7,06/19/2016,2014,06/13/2014 Pneumococcal Poly,23-Valent (Pneumovax) 05/24/2012 Tdap 07/13/2014 Family History Medical History Relation Name Comments Unknown Brother RA Hyperlipidemia Father Christian Hypertension Father Christian Stroke Father Christian Cancer-breast Maternal Grandmother Anesthesia Problem No Family History Blood Disease No Family History Relation Name Status Comments Brother Father Christian Maternal Grandmother Social History Tobacco Use Types Packs/Day Years Used Date Smoking Tobacco: Every Day Cigarettes 1 15 Smokeless Tobacco: Never Tobacco Cessation:Ready to Q uit: No; Counseling Given: Yes Alcohol Use Standard Drinks/Week Comments Yes 0 (1 standard drink = 0.6 oz pur e alcohol) occassional PHQ-2 Answer Date Recorded PHQ-2 Score 0 10/15/2018 Comments No Sex and Gender Information Value Date Recorded Sex Assigned at Not on file Legal Sex Female 5:23 AM CHIEF OF STAFF Gender Identity Not on file Sexual Orientation Not on file 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 Not on file Not on file Not on file Obstetrics History Para Term AB IAB SAB Ectopic Multiple Livin g Live Births 4 2 2 0 0 0 0 0 2 2 Date Outcome GA Total Labor Labor/2nd/3rd Weight Sex Type Anes PTL Sarita A1 A5 Name Clin Term Term 1994 40w 0d M Vag Livin g Sreekanth 1996 40w 0d 3.18 kg (7 lb) F C-Sec tion Livin g 8 9 [facility] Comments:Breech Last Filed Vital Signs Vital Sign Reading Time Taken Comments Blood Pressure 132/68 06/19/2021 7:44 AM CDT Pulse 65 06/19/2021 7:44 AM CDT Temperature 36 C (96.8 F) 06/19/2021 7:44 AM CDT Respiratory Rate 16 06/19/2021 7:44 AM CDT Oxygen Saturation 93% 06/19/2021 7:44 AM CDT Inhaled Oxygen Concentration - - Weight 89.9 kg (198 lb 3.2 oz) 06/17/2021 8:33 A M CDT Height 161.3 cm (5' 3.5) 06/17/2021 8:33 AM CDT Body Mass Index 34.56 06/17/2021 8:33 AM CDT Plan of Treatment Health Maintenance Due Date Last Done Comments HIV for age 15-65 1982 Hepatitis C screening for ag e 18-79 1985 Hepatitis B series for 19+ ( 1 of 3 - 19+ 3-dose series) 1986 Colonoscopy through age 75 2012 Pneumococcal series for age 50+ (2 of 2 - PCV) 05/24/2013 05/24/2012 Zoster (shingles) series for age 50+ (1 of 2) 2017 Depression screening for age 12+ 10/26/2018 10/27/19 18, 02/27/2016 BMI (ht and wt on same day) for age 18+ 06/03/2019 06/03/2018, 10/26/2017, 12/01/2016, Additional history exists Mammogram for age 45-75 10/12/2019 10/12/19 19, 10/07/2017, 09/23/2016, Additional history exists Lipids for age 45-75 10/16/2021 10/16/2016, 12/11/2014, 10/14/2007 Pap test for age 21-65 05/19/2024 , 05/19/2021, 06/25/2015, Additional history exists Tetanus booster 07/13/2024 07/13/2014 COVID-19 vaccine series ( season) 2025 09/12/2021, 11/23/2020, 11/02/2020 Influenza Vaccine (#1) 2025 8, 06/23/2017, 06/19/2016, Additional history exists RSV vaccine for adults or (1 - 1-dose 75+ series) 2042 Goals Goal Patient Goal Type Associated Problems Recent Progress Patient-Stated? Author BLOOD PRESSURE - MAINTAINS BP less than 140/90 Blood Pressure No Demarcus Jane MD Medical Devices Implanted Type Area Counterintelligence Agent Device Identifier Shelf Expiration Date Model / Serial / Lot Adhesion Barrier 5x6in Seprafilm Absorb - [id number] Implanted:Qty: 4 on 06/17/2021 by Mag Stark MD at [facility] [employer] [facility] 11/01/2023 [id number] / / [id number] Procedures Procedure Name Priority Date/Time Associated Diagnosis Comments HPV HIGH RISK Routine 05/19/2021 3:03 PM CDT Encounter for screening for malignant neoplasm of cervix XR MAMMO BILAT SCREENING Routine 10/12/2018 8:18 AM CHIEF OF STAFF Screening breast examination LIPID PANEL W REFLEX MEASURED LDL Routine 10/16/2016 10:29 AM CHIEF OF STAFF Hypertension from Last 3 Months or Most Recently Relevant to Health Maintenance Results * HPV HIGH RISK (05/19/2021 3:03 PM CDT) TYPE 16 Negative Negative 05/22/2021 1:39 PM CDT [facility] TYPE 18 Negative Negative 05/22/2021 1:39 PM CDT [facility] OTHER HIGH RISK TYPES Negative Negative 05/22/2021 1:39 PM CDT [facility] Other (Cervical) 05/19/2021 3:03 PM CDT 05/20/2021 2:41 PM CDT Narrative [facility] - 05/22/2021 1:39 PM CDT HPV types 16, 18, 31, 33, 35, 39, 45, 51, 52, 56, 58, 59, 66 and 68 DNA were undetectable or below the pre-set threshold. Methodology: Tony Tigist 4800 HPV Test us Mag Stark MD MICROBIOLOGY Laure l Result [facility] [address] [place] [address], [place] * XR MAMMO BILAT SCREENING (10/12/2018 8:18 AM CHIEF OF STAFF) Anatomical Region Laterality Modality BREASTS, Breast Left, Breast Right Bilateral Mammography Impressions 10/12/2018 11:11 AM CHIEF OF STAFF There is no radiographic evidence for malignancy. Recommend annual mammograms. A lay language report of this examination will be provided to the patient. MAMMOGRAM ASSESSMENT: ACR 1 Negative Narrative 10/12/2018 11:11 AM CHIEF OF STAFF XR MAMMO BILAT SCREENING [[id number]] CLINICAL HISTORY: This is an asymptomatic 53 y.o. patient. INDICATION FOR EXAM: Mammogram Screening. TECHNIQUE: CC & MLO views were obtained. This digital study was evaluated with the assistance of Computer-Aided Detection. COMPARISON FILM: Yes 10/07/17 [facility] FINDINGS: Mammographically, the breast tissue has scattered fibroglandular densities. There are no dominant masses, suspicious micro calcifications or areas of architectural distortion. us Demarcus Jane MD MAMMO Final Re sult * (ABNORMAL) LIPID PANEL W REFLEX MEASURED LDL (10/16/2016 10:29 AM CHIEF OF STAFF) CHOLESTEROL,TOTAL 130 100 - 199 mg/dL 10/16/2016 12:07 PM CHIEF OF STAFF [facility] TRIGLYCERIDES 123 <150 mg/dL 10/16/2016 12:07 PM CHIEF OF STAFF [facility] HDL CHOLESTEROL 28(L) >40 mg/dL 7 12:07 PM CHIEF OF STAFF [facility] NON-HDL CHOLESTEROL 102 <145 mg/dl 10/16/2016 12:07 PM CHIEF OF STAFF [facility] CHOL/HDL RATIO 4.64(H) <4.50 10/16/2016 12:07 PM CHIEF OF STAFF [facility] LDL CHOLESTEROL 77 <=130 mg/dL 10/16/2016 12:07 PM CHIEF OF STAFF [facility] PATIENT STATUS NOT GIVEN 10/16/2016 12:07 PM CHIEF OF STAFF [facility] Blood BLOOD SPECIMEN / Unknown Venipuncture / Unknown 10/16/2016 10:29 AM CHIEF OF STAFF 10/16/2016 10:29 AM CHIEF OF STAFF Demarcus Jane MD CHEMISTRY Final Re sult Performing Organization Address City/State/[facility] [place] [address] from Last 3 Months or Most Recently Relevant to Health Maintenance Insurance Advance Directives * Full Code (Latest Code Status on File) Date Activated Date Inactivated Comments 06/17/2021 7:50 AM 06/19/2021 2:29 PM Question Answer Comments Code Status Discussion: Per Existing Order * Full Code Date Activated Date Inactivated Comments 12/07/2016 7:03 AM 12/07/2016 2:48 PM Care Teams Care Transition Mgr Relationship Specialty Start Date End Date Demarcus Jane MD [address] [place] [address] PCP - General 12/28/06
--- NOTE | 2025-06-03 15:21 | CRLHL7_ITS ---
For Patients: As a result of the Century Cures Act, medical imaging exams and procedure reports are released immediately into your electronic medical record. You may view this report before your referring provider. If you have questions, please contact your health care provider. INDICATION: Sharp pain on left side of chest TECHNIQUE: Chest radiograph 1 view COMPARISON: None FINDINGS: The sensitivity and specificity of the exam are moderately limited by the patient`s body habitus. Mediastinum: The mediastinum is normal in appearance. The heart silhouette is normal in size and morphology. Lung: There is a 1 cm nodule in the lateral left upper lung zone and corresponds to the round nodule seen on prior CT. Mild left perihilar infiltrates are present. No sign of pleural effusion seen. No pneumothorax is identified. Bone and Soft tissue: Unremarkable for age. IMPRESSIONS: 1. There is a 1 cm nodule in the lateral left upper lung zone and corresponds to the round nodule seen on prior CT. Continued imaging surveillance is recommended. 2. Mild left perihilar infiltrates are present. These findings can be seen with atelectasis and/or pneumonia. Imaging follow-up is recommended to document resolution. Dictated by Timmy Ruth MD @ 06/03/2025 4:09:42 PM Dictated by: Timmy Ruth MD @ 06/03/2025 16:09:45 (Electronically Signed)
--- NOTE | 2025-06-03 15:25 | ED.GENADULT ---
HPI - General Adult General Chief complaint: Chest Pain <Tony Guthrie MD - Last Filed: 06/03/25 15:45> Stated complaint: Sharp pain on left side of chest <Tony Guthrie MD - Last Filed: 06/03/25 15:45> Time Seen by Provider: 06/03/25 15:15 <Tony Guthrie MD - Last Filed: 06/03/25 15:45> History of Present Illness HPI narrative: Patient is a pleasant 59 year white female smoker who has had a cold and cough about a week ago that seems to be better, she had some laryngitis ache change to her voice and that continues, she noticed over the last few days some intermittent discomfort when she moves or breathes deeply in her left anterior chest left of her breast bone. She reports that touching her chest also hurts that area. She has had no leg swelling edema, no history of bleeding or clotting problems. She does have a single kidney and has an atrophic right kidney. She has had a cystadenoma of the ovary. Her medical chart was reviewed. She does still smoke. She noticed the discomfort got worse when she is walking through [employer] today. <Tony Guthrie MD - Last Filed: 06/03/25 15:45> Related Data Home medications: Home Medications ?Medication ?Instructions ?Recorded ?Confirmed multivitamin 1 tab PO QDAY 04/05/23 05/28/25 rizatriptan 10 mg disintegrating 10 mg PO DAILY 04/05/23 05/28/25 tablet valacyclovir 1 gram tablet 2,000 mg PO BID 04/05/23 05/28/25 Previous Rx's ?Medication ?Instructions ?Recorded losartan 100 1 tab PO QDAY #90 tabs 02/01/25 mg-hydrochlorothiazide 12.5 mg tablet terbinafine HCl 250 mg tablet 250 mg PO DAILY #7 tabs 04/30/25 tirzepatide (weight loss) 5 mg/0.5 5 mg (0.5 mL) subcut QWEEK 4 weeks 05/22/25 mL subcutaneous solution #2 mL escitalopram oxalate 10 mg tablet 10 mg PO QDAY #90 tabs 06/01/25 <Tony Guthrie MD - Last Filed: 06/03/25 15:45> Allergies/adverse reactions: Allergies Allergy/AdvReac Type Severity Reaction Status Date / Time JUAN LUIS Inhibitors AdvReac Mild Cough Verified 05/28/25 07:57 <Tony Guthrie MD - Last Filed: 06/03/25 15:45> Review of Systems Status of ROS: Reports: 6 or more systems reviewed and unremarkable except as noted in History and below <Tony Guthrie MD - Last Filed: 06/03/25 15:45> [facility] Medical History: Medical History Recurrent herpes labialis ?B00.1 - Herpesviral vesicular dermatitis (ICD-10) Migraine without aura (02/15/14) ?G43.009 - Migraine without aura, not intractable, without status migrainosus (ICD-10) Primary hypertension ?I10 - Essential (primary) hypertension (ICD-10) Arthritis of knee, left ?M17.12 - Unilateral primary osteoarthritis, left knee (ICD-10) Congenital absence of right kidney ?Q60.0 - Renal agenesis, unilateral (ICD-10) Anxiety and depression ?F41.9 - Anxiety disorder, unspecified (ICD-10) ?F32.A - Depression, unspecified (ICD-10) Lesion of right fallopian tube (06/2021) ?N83.9 - Noninflammatory disorder of ovary, fallopian tube and broad ligament, unspecified (ICD-10) 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) ?D27.9 - Benign neoplasm of unspecified ovary (ICD-10) Actinic keratosis ?L57.0 - Actinic keratosis (ICD-10) <Tony Guthrie MD - Last Filed: 06/03/25 15:45> Surgical History: Surgical History History of repair of right rotator cuff ?Z98.890 - Other specified postprocedural states (ICD-10) History of exploratory laparotomy (06/2021) ?Z98.890 - Other specified postprocedural states (ICD-10) History of endometrial ablation (~2017) ?Z98.890 - Other specified postprocedural states (ICD-10) History of meniscectomy of left knee ?Z98.890 - Other specified postprocedural states (ICD-10) History of reduction mammoplasty (2001) ?Z98.890 - Other specified postprocedural states (ICD-10) History of section (06/14/97) ?Z98.891 - History of uterine scar from previous surgery (ICD-10) <Tony Guthrie MD - Last Filed: 06/03/25 15:45> Family History: Family History Maternal Grandmother Breast cancer Mother High blood pressure Osteoporosis Heart disease Father Coronary artery disease Stroke High blood pressure High cholesterol Brother Alcohol dependence Lung cancer Rheumatoid arthritis Sister Heart disease <oTny Guthrie MD - Last Filed: 06/03/25 15:45> Social History: Social History Narrative: Arts Administrator, , two kids, smoker What is your current living situation?: I presently have a place to live Problems where you live: no known problems In the past 12 months, utilities in danger of being shut off: no In past 12 months, lack of transportation kept you from medical appts, meetings, work, or getting things needed for daily living: no In the past 12 mos, have been you worried that your food would run out before you had money to buy more?: never true In the past 12 mos, the food you bought just didn't last and you didn't have money to buy more?: never true Highest level of school completed/degree received: Associate degree: academic program Smoking Status: Current every day smoker Do you use any of these nicotine containing products: None How often do you have a drink containing alcohol: 2-4 times a month AUDIT-C Alcohol total score: 2 Non-prescribed substance use: denies use Are you now , , , , never or living with a partner: Social isolation score (0-1 are the most socially isolated patients): 1 How often does anyone, including family, friends and others, physically hurt you: never How often does anyone, including family, friends and others, insult or talk down to you: never How often does anyone, including family, friends and others, threaten you with harm: never How often does anyone, including family, friends and others, scream or curse at you: never Do you think of yourself as: straight/heterosexual Gender Identity: female Are you currently sexually active: Yes <Tony Guthrie MD - Last Filed: 06/03/25 15:45> Exam Narrative: Exam Narrative: Objective: Patient's vital signs look within normal limits She is alert orient x3 no distress no cyanosis Neck is supple Chest equal breath sounds patient has anterior chest wall pain with deep breathing. Abdomen benign extremities are no edema neurologic nonfocal. No swelling in her legs. Good peripheral perfusion noted. <Tony Guthrie MD - Last Filed: 06/03/25 15:45> Const: Vital Signs, click to edit/add: Vital Signs - 24 hr 06/03/25 15:01 06/03/25 15:21 06/03/25 15:53 Temperature 97.7 F Pulse Rate 70 Pulse Rate [Pulse Oximeter] 70 Respiratory Rate 18 20 Blood Pressure Blood Pressure [Le ft Upper Arm] 141/77 H Pulse Oximetry 95 95 95 Oxygen Delivery Me thod Room Air 06/03/25 15:54 06/03/25 16:00 06/03/25 16:02 Temperature Pulse Rate 64 71 69 Pulse Rate [Pulse Oximeter] Respiratory Rate 13 15 21 Blood Pressure 119/80 123/76 Blood Pressure [Le ft Upper Arm] Pulse Oximetry 95 94 96 Oxygen Delivery Me thod 06/03/25 16:15 06/03/25 16:30 06/03/25 16:35 Temperature Pulse Rate 69 73 71 Pulse Rate [Pulse Oximeter] Respiratory Rate 16 16 20 Blood Pressure Blood Pressure [Le ft Upper Arm] Pulse Oximetry 95 95 95 Oxygen Delivery Me thod 06/03/25 16:45 06/03/25 17:00 06/03/25 17:05 Temperature Pulse Rate 73 72 74 Pulse Rate [Pulse Oximeter] Respiratory Rate 15 14 15 Blood Pressure Blood Pressure [Le ft Upper Arm] Pulse Oximetry 93 94 94 Oxygen Delivery Me thod 06/03/25 18:36 06/03/25 18:45 06/03/25 19:00 Temperature Pulse Rate 75 79 77 Pulse Rate [Pulse Oximeter] Respiratory Rate 14 16 16 Blood Pressure 133/88 Blood Pressure [Le ft Upper Arm] Pulse Oximetry 96 94 95 Oxygen Delivery Me thod 06/03/25 19:02 06/03/25 19:15 Temperature Pulse Rate 77 72 Pulse Rate [Pulse Oximeter] Respiratory Rate 16 15 Blood Pressure 117/91 H Blood Pressure [Le ft Upper Arm] Pulse Oximetry 94 94 Oxygen Delivery Me thod <Tony Guthrie MD - Last Filed: 06/03/25 15:45> Vital Signs, click to edit/add: Vital Signs - 24 hr 06/03/25 15:01 06/03/25 15:21 06/03/25 15:53 Temperature 97.7 F Pulse Rate 70 Pulse Rate [Pulse Oximeter] 70 Respiratory Rate 18 20 Blood Pressure Blood Pressure [Le ft Upper Arm] 141/77 H Pulse Oximetry 95 95 95 Oxygen Delivery Me thod Room Air 06/03/25 15:54 06/03/25 16:00 06/03/25 16:02 Temperature Pulse Rate 64 71 69 Pulse Rate [Pulse Oximeter] Respiratory Rate 13 15 21 Blood Pressure 119/80 123/76 Blood Pressure [Le ft Upper Arm] Pulse Oximetry 95 94 96 Oxygen Delivery Me thod 06/03/25 16:15 06/03/25 16:30 06/03/25 16:35 Temperature Pulse Rate 69 73 71 Pulse Rate [Pulse Oximeter] Respiratory Rate 16 16 20 Blood Pressure Blood Pressure [Le ft Upper Arm] Pulse Oximetry 95 95 95 Oxygen Delivery Me thod 06/03/25 16:45 06/03/25 17:00 06/03/25 17:05 Temperature Pulse Rate 73 72 74 Pulse Rate [Pulse Oximeter] Respiratory Rate 15 14 15 Blood Pressure Blood Pressure [Le ft Upper Arm] Pulse Oximetry 93 94 94 Oxygen Delivery Me thod 06/03/25 18:36 06/03/25 18:45 06/03/25 19:00 Temperature Pulse Rate 75 79 77 Pulse Rate [Pulse Oximeter] Respiratory Rate 14 16 16 Blood Pressure 133/88 Blood Pressure [Le ft Upper Arm] Pulse Oximetry 96 94 95 Oxygen Delivery Me thod 06/03/25 19:02 06/03/25 19:15 Temperature Pulse Rate 77 72 Pulse Rate [Pulse Oximeter] Respiratory Rate 16 15 Blood Pressure 117/91 H Blood Pressure [Le ft Upper Arm] Pulse Oximetry 94 94 Oxygen Delivery Me thod <Tonio Salinas MD - Last Filed: 06/03/25 20:35> Course Course ED Course: Troponin x2 is negative his her D-dimer is negative she does have the large left hilar mass, with some postobstructive pneumonia noted. She went to the bathroom when coughed up a very small amount of blood. There was old and dark. I had a long talk with both her and her daughter. This is not a good finding have a hilar mass, is highly suggestive of malignancy but not diagnostic. Will need further workup, she will contact her primary care physician tomorrow. I think some antibiotics for postobstructive nature would be in good order here. We will try some Levaquin. The previous physician did start her give her prescription for prednisone and we did call in stop this. I will also give her some narcotic medication she can use. Explained to her that this is a definite diagnosis of cancer just suggestive, and the she should stop smoking, and if the bleeding or coughing up blood worsens for her to come back to the emergency department. She was comfortable with this. <Tnoio Salinas MD - Last Filed: 06/03/25 20:35> Vital Signs Vital signs: Initial Vital Signs Temperature 97.7 F 06/03/25 15:01 Temperature Source Temporal Artery Scan 06/03/25 15:01 Pulse Rate 70 06/03/25 15:01 Respiratory Rate 18 06/03/25 15:01 Blood Pressure 141/77 H 06/03/25 15:01 Blood Pressure Mean 98 06/03/25 15:01 Blood Pressure Position Sitting 06/03/25 15:01 Pulse Oximetry 95 06/03/25 15:01 Oxygen Delivery Method Room Air 06/03/25 15:01 Vital Signs Temperature 97.7 F 06/03/25 15:01 Pulse Rate 70 06/03/25 15:01 Respiratory Rate 18 06/03/25 15:01 Blood Pressure 141/77 H 06/03/25 15:01 Pulse Oximetry 95 06/03/25 15:01 Oxygen Delivery Method Room Air 06/03/25 15:01 Temperature 97.7 F 06/03/25 15:01 Pulse Rate 72 06/03/25 19:15 Respiratory Rate 15 06/03/25 19:15 Blood Pressure 117/91 H 06/03/25 19:02 Pulse Oximetry 94 06/03/25 19:15 Oxygen Delivery Method Room Air 06/03/25 15:01 <Tony Guthrie MD - Last Filed: 06/03/25 15:45> Initial Vital Signs Temperature 97.7 F 06/03/25 15:01 Temperature Source Temporal Artery Scan 06/03/25 15:01 Pulse Rate 70 06/03/25 15:01 Respiratory Rate 18 06/03/25 15:01 Blood Pressure 141/77 H 06/03/25 15:01 Blood Pressure Mean 98 06/03/25 15:01 Blood Pressure Position Sitting 06/03/25 15:01 Pulse Oximetry 95 06/03/25 15:01 Oxygen Delivery Method Room Air 06/03/25 15:01 Vital Signs Temperature 97.7 F 06/03/25 15:01 Pulse Rate 70 06/03/25 15:01 Respiratory Rate 18 06/03/25 15:01 Blood Pressure 141/77 H 06/03/25 15:01 Pulse Oximetry 95 06/03/25 15:01 Oxygen Delivery Method Room Air 06/03/25 15:01 Temperature 97.7 F 06/03/25 15:01 Pulse Rate 72 06/03/25 19:15 Respiratory Rate 15 06/03/25 19:15 Blood Pressure 117/91 H 06/03/25 19:02 Pulse Oximetry 94 06/03/25 19:15 Oxygen Delivery Method Room Air 06/03/25 15:01 <Tonio Salinas MD - Last Filed: 06/03/25 20:35> Medications Administered Medications: Discontinued Medications Generic Name Dose Route Start Last Admin Trade Name Freq PRN Reason Stop Dose Admin Aspirin 324 mg 06/03/25 15:21 06/03/25 16:09 Aspirin 81 Mg Tab.Chew PO 06/03/25 15:22 324 mg ONCE ONE Administration Sodium Chloride 500 mls @ 500 mls/hr 06/03/25 15:21 06/03/25 17:29 0.9 % Sodium Chloride 500 Ml IV 06/03/25 16:20 Infused .Q1H ONE Infusion Sodium Chloride 1,000 mls @ 1,000 mls/hr 06/03/25 18:30 06/03/25 18:37 0.9 % Sodium Chloride 1000 Ml IV 06/03/25 19:29 1,000 mls/hr .Q1H FLAKITA Administration Morphine Sulfate 4 mg 06/03/25 15:21 06/03/25 16:10 Morphine 4 Mg/Ml Inj IVP 06/03/25 15:22 2 mg ONCE ONE Administration Oxycodone/Acetaminophen 1 tab 06/03/25 18:45 06/03/25 18:58 Oxycodone/Apap 5-325 Tablet PO 06/03/25 18:46 1 tab ONCE ONE Administration <Tony Guthrie MD - Last Filed: 06/03/25 15:45> Discontinued Medications Generic Name Dose Route Start Last Admin Trade Name Can PRN Reason Stop Dose Admin Aspirin 324 mg 06/03/25 15:21 06/03/25 16:09 Aspirin 81 Mg Tab.Chew PO 06/03/25 15:22 324 mg ONCE ONE Administration Sodium Chloride 500 mls @ 500 mls/hr 06/03/25 15:21 06/03/25 17:29 0.9 % Sodium Chloride 500 Ml IV 06/03/25 16:20 Infused .Q1H ONE Infusion Sodium Chloride 1,000 mls @ 1,000 mls/hr 06/03/25 18:30 06/03/25 18:37 0.9 % Sodium Chloride 1000 Ml IV 06/03/25 19:29 1,000 mls/hr .Q1H FLAKITA Administration Morphine Sulfate 4 mg 06/03/25 15:21 06/03/25 16:10 Morphine 4 Mg/Ml Inj IVP 06/03/25 15:22 2 mg ONCE ONE Administration Oxycodone/Acetaminophen 1 tab 06/03/25 18:45 06/03/25 18:58 Oxycodone/Apap 5-325 Tablet PO 06/03/25 18:46 1 tab ONCE ONE Administration <Tonio Salinas MD - Last Filed: 06/03/25 20:35> Medical Decision Making [facility] Narrative Medical decision making narrative: [age] year white female with a history of solitary kidney, with pleuritic chest pain after a recent upper respiratory infection. She is a smoker. She has had a stable nodule in the left lung. The patient gives a good history of pleuritic type pain and maybe mild pleurisy post infection. I think will check an EKG which by my review independently shows normal sinus rhythm no acute ST T wave changes. No evidence of pericarditis noted on the EKG. Will check a troponin, lab studies, CRP, D-dimer. Will give the patient pain medication in form of morphine 4 mg IV and 500 mL normal saline. Will give her an aspirin orally. Strong suspicion this is simply chest wall pain. Will look at her x-ray of her chest as well. Disposition pending lab results and chest x-ray findings. Also base our treatment on her response to the pain medication. Addendum 3:44 p.m.: Patient's chest x-ray by my review looks unremarkable. Lab studies are pending. Will sign this patient out to my oncoming colleague at change of shift. This would be for lab review and disposition. If labs come back reassuring I think we can simply use the prednisone for home discomfort for for this pleuritic chest wall pain. She could use Tylenol as well. Would avoid NSAIDs given her solitary kidney. <Tony Guthrie MD - Last Filed: 06/03/25 15:45> Medical Records Medical records reviewed: Yes I reviewed the patient's medical records <Tonio Salinas MD - Last Filed: 06/03/25 20:35> Lab Data Lab results reviewed: Yes I reviewed the patient's lab results <Tonio Salinas MD - Last Filed: 06/03/25 20:35> Labs: Lab Results 06/03/25 06/03/25 06/03/25 Range/Units 15:22 16:15 17:24 WBC 8.29 (4.50-11.00) K/uL RBC 4.52 (4.00-5.20) m/uL Hgb 13.5 (12.0-16.0) gm/dL Hct 40.9 (33.0-51.0) % MCV 91 (80-100) fL MCH 30 (26-34) pg MCHC 33 (32-36) gm/dL RDW Coeff of Essie 13.2 (11.5-15.5) % Plt Count 193 (140-440) K/uL Neut % (Auto) 74.5 H (42.0-72.0) % Lymph % (Auto) 19.2 L (20-44) % Stephens % (Auto) 5.7 (0.0-11.0) % Eos % (Auto) 0.4 (0.0-7.0) % Baso % (Auto) 0.1 (0.0-3.0) % Neut # (Auto) 6.20 (1.7-7.0) K/uL Lymph # (Auto) 1.60 (0.90-2.90) K/uL Stephens # (Auto) 0.50 (0.00-0.90) K/UL Eos # (Auto) 0.03 (0.00-0.50) K/uL Baso # (Auto) 0.01 (0.00-0.30) K/uL Abs Immat Gran (auto) 0.01 (0.00-0.30) K/uL Imm/Tot Granulo (auto) 0.1 % D-Dimer Quant (PE/DVT) 0.35 (0.00-0.50) ug/ml Sodium 135 (135-149) mmol/L Potassium 3.7 (3.6-5.1) mmol/L Chloride 102 (96-114) mmol/L Carbon Dioxide 27 (20-32) mmol/L Anion Gap 6 L (7-15) mEq/L BUN 15 (7-30) mg/dL Creatinine 0.7 (0.5-1.5) mg/dL Estimated Creat Clear 73.35 Estimated GFR 101 ml/min Glucose 101 (60-115) mg/dL Calcium 9.2 (8.4-10.6) mg/dL Total Bilirubin 0.2 (0.1-1.5) mg/dL Direct Bilirubin 0.1 (0.0-0.5) mg/dL AST 24 (12-35) U/L ALT 25 (4-35) U/L Alkaline Phosphatase 79 (40-150) U/L C-Reactive Protein 1.3 H (0.5-1.0) mg/dL NT-Pro-B Natriuret Pep 79 (See Note) pg/mL Total Protein 7.4 (6.0-8.3) g/dL Albumin 4.3 (3.3-5.0) g/dL POC Troponin I 0.01 0.01 (0.01-0.04) ng/ml <Tony Guthrie MD - Last Filed: 06/03/25 15:45> Lab Results 06/03/25 06/03/25 06/03/25 Range/Units 15:22 16:15 17:24 WBC 8.29 (4.50-11.00) K/uL RBC 4.52 (4.00-5.20) m/uL Hgb 13.5 (12.0-16.0) gm/dL Hct 40.9 (33.0-51.0) % MCV 91 (80-100) fL MCH 30 (26-34) pg MCHC 33 (32-36) gm/dL RDW Coeff of Essie 13.2 (11.5-15.5) % Plt Count 193 (140-440) K/uL Neut % (Auto) 74.5 H (42.0-72.0) % Lymph % (Auto) 19.2 L (20-44) % Stephens % (Auto) 5.7 (0.0-11.0) % Eos % (Auto) 0.4 (0.0-7.0) % Baso % (Auto) 0.1 (0.0-3.0) % Neut # (Auto) 6.20 (1.7-7.0) K/uL Lymph # (Auto) 1.60 (0.90-2.90) K/uL Stephens # (Auto) 0.50 (0.00-0.90) K/UL Eos # (Auto) 0.03 (0.00-0.50) K/uL Baso # (Auto) 0.01 (0.00-0.30) K/uL Abs Immat Gran (auto) 0.01 (0.00-0.30) K/uL Imm/Tot Granulo (auto) 0.1 % D-Dimer Quant (PE/DVT) 0.35 (0.00-0.50) ug/ml Sodium 135 (135-149) mmol/L Potassium 3.7 (3.6-5.1) mmol/L Chloride 102 (96-114) mmol/L Carbon Dioxide 27 (20-32) mmol/L Anion Gap 6 L (7-15) mEq/L BUN 15 (7-30) mg/dL Creatinine 0.7 (0.5-1.5) mg/dL Estimated Creat Clear 73.35 Estimated GFR 101 ml/min Glucose 101 (60-115) mg/dL Calcium 9.2 (8.4-10.6) mg/dL Total Bilirubin 0.2 (0.1-1.5) mg/dL Direct Bilirubin 0.1 (0.0-0.5) mg/dL AST 24 (12-35) U/L ALT 25 (4-35) U/L Alkaline Phosphatase 79 (40-150) U/L C-Reactive Protein 1.3 H (0.5-1.0) mg/dL NT-Pro-B Natriuret Pep 79 (See Note) pg/mL Total Protein 7.4 (6.0-8.3) g/dL Albumin 4.3 (3.3-5.0) g/dL POC Troponin I 0.01 0.01 (0.01-0.04) ng/ml <Tonio Salinas MD - Last Filed: 06/03/25 20:35> Imaging Data CT scan - chest: Radiologist's impression: [place] [address] Diagnostic Imaging Report Patient: Sol Al MR#: [id number] : 1965 Acct:[id number] Loc: ED Service Date: 06/03/[address]: Ordering Physician: Tonio Salinas M.D. Date of Service: 06/03/25 Procedure(s): CT angio chest PE protocol Accession Number(s): [id number] cc: Demarcus Jane M.D.; Tonio Salinas M.D.~ For Patients: As a result of the Century Cures Act, medical imaging exams and procedure reports are released immediately into your electronic medical record. You may view this report before your referring provider. If you have questions, please contact your health care provider. INDICATION: Shortness of breath, chest pain on left side. Previous study from 03/28/24 was sent for reference. TECHNIQUE: CT chest PE was acquired with 100 cc Omnipaque 350 IV contrast. COMPARISON: Chest CT 07/10/2024. PET-CT 02/03/2024. FINDINGS: Heart and vasculature: Contrast opacification of the pulmonary arterial tree is adequate. No sign of pulmonary embolism. Heart size is normal. Thoracic aorta and pulmonary artery are normal in caliber. Lungs and pleura: 3.4 cm irregular ground-glass opacity within the anterior left upper lobe with mild subjacent subpleural fibrotic changes. 1.3 cm round left upper lobe pulmonary nodule (10/45), not significantly changed compared to the prior exam and previously characterized as a benign nodule on the prior PET-CT. No pleural effusion or pneumothorax. Lymph nodes/mediastinum: New large 4.9 x 4.4 x 4.6 cm left hilar mass with mild compression of the left main pulmonary artery. The mass infiltrates the left hilum and extends into the superior left prevascular region. Chest wall: No masses. Thyroid: Unchanged 1.6 cm hypodense left thyroid lobe nodule. Upper abdomen: Absent right kidney. Left renal cysts. Bones: Unremarkable for age. IMPRESSION: 1. No pulmonary embolism. 2. New 4.9 x 4.4 x 4.6 cm infiltrative left hilar mass with mild compression of the left main pulmonary artery, highly concerning for malignancy. 3. 3.4 cm irregular ground-glass opacity within the anterior left upper lobe likely represents postobstructive atelectasis or pneumonia. Recommend attention on follow-up imaging. Please note that all CT scans at this facility use dose modulation, iterative reconstruction, and/or weight-based dosing when appropriate to reduce radiation dose to as low as reasonably achievable. Dictated by Randy Ontiveros MD @ 06/03/2025 7:09:01 PM (Electronically Signed) <Tonio Salinas MD - Last Filed: 06/03/25 20:35> ECG Data Attestation: I personally reviewed and interpreted this ECG as follows: <Tonio Salinas MD - Last Filed: 06/03/25 20:35> Interpretation: EKG shows normal sinus rhythm, no acute ST wave changes, noted. QRS is 94 milliseconds QT is 396 and QTC is 427. <Tonio Salinas MD - Last Filed: 06/03/25 20:35> Discharge Plan Discharge Clinical Impression: Acute chest wall pain, Mass of left lung, Pneumonia <Tony Guthrie MD - Last Filed: 06/03/25 15:45> Patient Disposition: Home w/ Parent or Adult <Tony Guthrie MD - Last Filed: 06/03/25 15:45> Condition: Improved <Tony Guthrie MD - Last Filed: 06/03/25 15:45> Instructions: Chest Pain (DC), Noncardiac Chest Pain (ED), Pneumonia (ED), Needle Biopsy of the Lung (DC) <Tony Guthrie MD - Last Filed: 06/03/25 15:45> Additional Instructions: home,rest and follow up with , antibiotics and pain medication. No prednisone, Return if worsening coughing up blood. <Tony Guthrie MD - Last Filed: 06/03/25 15:45> Activity Level: Light activity <Tony Guthrie MD - Last Filed: 06/03/25 15:45> Light activity <Tonio Salinas MD - Last Filed: 06/03/25 20:35> Discharge Diet: Regular <Tony Guthrie MD - Last Filed: 06/03/25 15:45> Regular <Tonio Salinas MD - Last Filed: 06/03/25 20:35> Prescriptions: No Action terbinafine HCl 250 mg tablet 250 mg PO DAILY Qty: 7 5RF Rx Instructions: 1 QD x 7 days, repeat monthly x 6 months multivitamin Tablet 1 tab PO QDAY valacyclovir 1 gram tablet 2,000 mg PO BID rizatriptan 10 mg tablet,disintegrating 10 mg PO DAILY Rx Instructions: DISSOLVE ONE TABLET BY MOUTH EVERY 2 HOURS NEEDED FOR MIGRAINE DO NOT TAKE MORE THAN 3 TABLETS IN 24 HOURS losartan-hydrochlorothiazide 100-12.5 mg tablet 1 tab PO QDAY Qty: 90 2RF tirzepatide (weight loss) 5 mg/0.5 mL solution 5 mg subcut QWEEK 28 Days Qty: 2 0RF escitalopram oxalate 10 mg tablet 10 mg PO QDAY Qty: 90 0RF <Tony Guthrie MD - Last Filed: 06/03/25 15:45> Follow Up/Referrals: Demarcus Jane MD [Primary Care Provider, Family Practice] <Tony Guthrie MD - Last Filed: 06/03/25 15:45> Stand Alone Forms: [employer] Info Instructions <Tony Guthrie MD - Last Filed: 06/03/25 15:45>
[2025-06-03] MEDS: 0.9 % SODIUM CHLORIDE 500 ML 500 ML IV (16:07)
[2025-06-03] MEDS: ASPIRIN 81 MG TAB.CHEW 324 MG PO (16:09)
[2025-06-03] MEDS: MORPHINE 4 MG/ML INJ IVP (16:10)
[2025-06-03 16:31] LABS: Hematocrit* 40.9 % (33.0-51.0); Hemoglobin* 13.5 gm/dL (12.0-16.0); Immature Granulocytes Abs Auto 0.01 K/uL (0.00-0.30); Immature Granulocytes Pct Auto 0.1 %; Mean Corpuscular HGB Conc 33 gm/dL (32-36); Mean Corpuscular Hemoglobin 30 pg (26-34); Mean Corpuscular Volume 91 fL (80-100); RDW Coefficient of Variation % 13.2 % (11.5-15.5); Red Blood Count* 4.52 m/uL (4.00-5.20); White Blood Count* 8.29 K/uL (4.50-11.00)
[2025-06-03 16:47] LABS: Lymphocytes Absolute Auto 1.60 K/uL (0.90-2.90); Slide Review Reflex No
[2025-06-03 16:50] LABS: Troponin, Point-of-Care* 0.01 ng/ml (0.01-0.04)
[2025-06-03 16:59] LABS: Albumin* 4.3 g/dL (3.3-5.0); Chloride* 102 mmol/L (96-114); Potassium* 3.7 mmol/L (3.6-5.1); Sodium* 135 mmol/L (135-149)
[2025-06-03 17:01] LABS: Blood Urea Nitrogen* 15 mg/dL (7-30); Creatinine* 0.7 mg/dL (0.5-1.5); Est. Creatinine Clearance* 73.35; Estimated Glomerular Filt Rate 101 ml/min
[2025-06-03 17:02] LABS: Alanine Aminotransferase* 25 U/L (4-35); Alkaline Phosphatase* 79 U/L (40-150); Anion Gap 6 mEq/L (7-15); Aspartate Amino Transferase* 24 U/L (12-35); Bilirubin Direct* 0.1 mg/dL (0.0-0.5); Bilirubin Total* 0.2 mg/dL (0.1-1.5); Calcium* 9.2 mg/dL (8.4-10.6); Carbon Dioxide* 27 mmol/L (20-32); D Dimer Quantitative* 0.35 ug/ml (0.00-0.50); Glucose* 101 mg/dL (60-115); Total Protein* 7.4 g/dL (6.0-8.3)
[2025-06-03 17:18] LABS: NT Pro B Type NatriureticPept* 79 pg/mL (See Note)
--- NOTE | 2025-06-03 17:24 | CRLHL7_ITS ---
For Patients: As a result of the Century Cures Act, medical imaging exams and procedure reports are released immediately into your electronic medical record. You may view this report before your referring provider. If you have questions, please contact your health care provider. INDICATION: Shortness of breath, chest pain on left side. Previous study from 03/28/24 was sent for reference. TECHNIQUE: CT chest PE was acquired with 100 cc Omnipaque 350 IV contrast. COMPARISON: Chest CT 07/10/2024. PET-CT 02/03/2024. FINDINGS: Heart and vasculature: Contrast opacification of the pulmonary arterial tree is adequate. No sign of pulmonary embolism. Heart size is normal. Thoracic aorta and pulmonary artery are normal in caliber. Lungs and pleura: 3.4 cm irregular ground-glass opacity within the anterior left upper lobe with mild subjacent subpleural fibrotic changes. 1.3 cm round left upper lobe pulmonary nodule (10/45), not significantly changed compared to the prior exam and previously characterized as a benign nodule on the prior PET-CT. No pleural effusion or pneumothorax. Lymph nodes/mediastinum: New large 4.9 x 4.4 x 4.6 cm left hilar mass with mild compression of the left main pulmonary artery. The mass infiltrates the left hilum and extends into the superior left prevascular region. Chest wall: No masses. Thyroid: Unchanged 1.6 cm hypodense left thyroid lobe nodule. Upper abdomen: Absent right kidney. Left renal cysts. Bones: Unremarkable for age. IMPRESSION: 1. No pulmonary embolism. 2. New 4.9 x 4.4 x 4.6 cm infiltrative left hilar mass with mild compression of the left main pulmonary artery, highly concerning for malignancy. 3. 3.4 cm irregular ground-glass opacity within the anterior left upper lobe likely represents postobstructive atelectasis or pneumonia. Recommend attention on follow-up imaging. Please note that all CT scans at this facility use dose modulation, iterative reconstruction, and/or weight-based dosing when appropriate to reduce radiation dose to as low as reasonably achievable. Dictated by Randy Ontiveros MD @ 06/03/2025 7:09:01 PM (Electronically Signed)
[2025-06-03 17:57] LABS: Troponin, Point-of-Care* 0.01 ng/ml (0.01-0.04)
[2025-06-03] MEDS: OxyCODONE/APAP 5-325 TABLET 1 TAB PO (18:58)
== END 2025-06-03 19:54 | disposition home or self-care (01) ==
PROVIDERS: Family Medicine; Emergency Provider Family Medicine; PCP Family Medicine
DX: R07.9 Chest pain, unspecified (principal); J18.9 Pneumonia, unspecified organism; R91.8 Other nonspecific abnormal finding of lung field
CPT/HCPCS: 36415; 71045; 71275; 80048; 80076; 83880; 84484; 85025; 85379; 86140; 93005; 94761; 96374; 99284; 99285; A9270; J2270; J7030; Q9967